=== PATIENT | female | born 1965 | race Caucasian/White ===

== ENCOUNTER 2025-05-02 03:34 | Emergency (ER) | payer OTHER ==
[2025-05-02] MEDS ORDERED: Sodium Chloride 0.9% 10 ML Syringe FLUSH PRN (04:02)
[2025-05-02] MEDS: Ketorolac 30 MG/ML SDV IVPUSH ONE (04:07)
[2025-05-02] MEDS: Ondansetron 4 MG/2 ML SDV IVPUSH ONE (04:07)
[2025-05-02] MEDS: Lactated Ringers 1,000 ML IV SCH (04:08)
[2025-05-02 04:10] LABS: BASOPHILS PERCENT AUTO 0.4 % (0.0-1.0); EOSINOPHILS PERCENT AUTO 0.6 % (1.0-3.0); LYMPHOCYTES PERCENT AUTO 19.8 % (20.5-50.1); MONOCYTES PERCENT AUTO 7.4 % (2-8); NEUTROPHILS PERCENT AUTO 71.8 % (42.2-75.2); PLATELET COUNT,PLT 250 10^3/uL (150-450); RED BLOOD CELL COUNT 4.56 10^6/uL (4.2-5.4); WHITE BLOOD CELL COUNT,WBC 8.5 10^3/uL (5.0-10.0)
[2025-05-02 04:31] LABS: A/G RATIO 1.0; ALANINE AMINOTRANSFERASE,ALT 20.0 U/L (14-59); ASPARTATE AMNIOTRANSFERASE,AST 16.0 U/L (15-37); BILIRUBIN TOTAL 0.6 mg/dL (0.2-1.0); BLOOD UREA NITROGEN,BUN 17.0 mg/dL (7-18); CARBON DIOXIDE,CO2 30.0 mmol/L (21-32); CHLORIDE,CL 97.0 mmol/L (98-107); CREATININE 1.05 mg/dL (0.55-1.02); EST CRCL DRUG DOSING (CG) 44.5 mL/min; GLUCOSE RANDOM 132.0 mg/dL (70-99); POTASSIUM,K 2.8 mmol/L (3.5-5.1); PROTEIN TOTAL,TP 7.5 g/dL (6.4-8.2); SODIUM,NA 136.0 mmol/L (136-145)
[2025-05-02 04:32] LABS: ESTIMATED GFR 60.0 mL/min (>=60)
[2025-05-02] MEDS: Iopamidol 612 MG/ML 100 ML Bottle IVPUSH ONE (05:28)
[2025-05-02] MEDS: Potassium Chloride 10 MEQ Tab.ER PO ONE (05:49)
== END 2025-05-02 07:33 ==
LOC: DL.ED 03:34
DX: K80.50 Calculus of bile duct without cholangitis or cholecystitis without obstruction (principal); E87.6 Hypokalemia; I10 Essential (primary) hypertension; E78.00 Pure hypercholesterolemia, unspecified; E66.9 Obesity, unspecified; Z88.0 Allergy status to penicillin; Z88.8 Allergy status to other drugs, medicaments and biological substances; Z68.36 Body mass index [BMI] 36.0-36.9, adult
CPT/HCPCS: 36415; 74177; 80053; 83605; 83690; 83735; 85025; 93005; 93010; 96361; 96374; 96375; 99284; 99285-25; A9270-GY; J1171; J1885; J2405; J7120; Q9967